=== PATIENT | female | born 1955 | race Caucasian/White ===

== ENCOUNTER 2021-07-03 16:49 | Emergency (ER) | payer BC, SELFPAY ==
--- NOTE | 2021-07-03 16:58 | ED.SKABFB ---
HPI - Skin/Abscess/Foreign Bdy General Chief complaint: Skin/Abscess/Foreign Body Stated complaint: Rash on right Arm Time Seen by Provider: 07/03/21 16:58 Source: patient Mode of arrival: ambulatory Limitations: no limitations History of Present Illness HPI narrative: 66-year-old female states she has had rash to right arm for approximately 3 days. Reports 4 days ago she began having muscular pain to right upper arm. Went to see her chiropractor for adjustment. States that pain continued. The next day she noticed a painful rash to her right forearm. Continued to have muscle ache to right upper arm so she got a massage. This still did not help her muscle pain. The next day the rash was getting worse with a pins and needle tingling sensation to her right arm. States that her has been out mushroom hunting and thought maybe she had poison ericka but has not had any itching with her previous poison ericka rashes. Today she was talking with her friend and her friend suggested that she be seen for possible shingles. All systems reviewed and negative except as noted above. Related Data Home Medications Medication Instructions Recorded Confirmed ibuprofen 200 mg tablet 200 mg PO Q6H 07/09/20 07/03/21 tamoxifen 10 mg tablet 10 mg PO DAILY tablet 10/16/20 07/03/21 Allergies Allergy/AdvReac Type Severity Reaction Status Date / Time No Known Allergies Allergy Verified 07/03/21 16:58 Review of Systems Review of Systems: CONSTITUTIONAL: Denies fever, chills, or sweats. EYES: Denies visual changes, redness, or discharge. ENT: Denies rhinorrhea, congestion, sore throat, or otalgia. CARDIOVASCULAR: Denies chest pain, palpitations, or edema. RESPIRATORY: Denies cough or dyspnea. GASTROINTESTINAL: Denies abdominal pain, nausea, vomiting, or diarrhea. GENITOURINARY: Denies dysuria or hematuria. SKIN: Reports painful rash to right forearm. MUSCULOSKELETAL: Denies back pain, joint pain, or myalgia. NEUROLOGIC: Denies headache, numbness, or weakness. PSYCHIATRIC: Denies anxiety or depression. All other systems reviewed are negative, except as documented in HPI. [facility] Past Medical History Medical History Chronic night sweats Essential hypertension PAULINE (generalized anxiety disorder) Surgical History Surgical History History of hysterectomy History of lumpectomy of left breast History of total right knee replacement (TKR) Hx of foot surgery Family History Family History Father Family history of cardiovascular disease Family history of coronary artery disease Mother Family history of lung disease Social History Social History Second hand tobacco smoke exposure: No Alcohol intake: current Drinks per week: 9 Substance use: never Substance use type: does not use Gender identity (if verbalized by the patient): Female Comments At time of signature, agree with nursing past medical, surgical, social and family history. There is no relevant family history pertinent to the presenting complaint. Exam Narrative: GENERAL: This is a well-nourished, well-developed patient, in no apparent distress. HEAD: normocephalic, atraumatic. EYES: PERRL. Sclera clear/white. Vision is grossly intact. EARS: External ears normal NOSE: External nose normal NECK: Neck supple, non-tender without lymphadenopathy, masses or thyromegaly. CARDIOVASCULAR: Regular rate and rhythm without murmurs, gallops, or rubs. RESPIRATORY: Clear to auscultation. Breath sounds equal bilaterally. No wheezes, rales, or rhonchi. SKIN: warm, Dry, intact , good texture and turgor. Erythematous vesicular rash to entire right arm. Vesicles to right thumb and right thenar eminence. Vesicular rash to right forearm is drying up an
[2021-07-03 17:01] VITALS: BP 154/97; PULSE 99; RESP 18; TEMP 36.3; O2SAT 100
== END 2021-07-03 17:25 | disposition home or self-care (01) ==
PROVIDERS: Emergency Provider Nurse Practitioner Family; PCP Family Medicine
DX: B02.9 Zoster without complications (principal); I10 Essential (primary) hypertension; Z96.651 Presence of right artificial knee joint
CPT/HCPCS: 99213; G0463

== ENCOUNTER 2022-03-02 13:51 | Outpatient (CLI) | payer BC, SELFPAY ==
--- NOTE | ~2022-03-02 | DEXA_ITS ---
Bone Density Report Name: BUBBA MOORE Age: 66 Sex: Female Ethnicity: White Date of : 1955 Indication: postmenopausal; screening for osteoporosis; height loss; cancer; Referring Provider: SHELLI GRAF Study: Bone densitometry was performed. Exam Date: March 02, 2022 Accession number: [id number] Bone Density: Region BMD T-score Z-score Classification AP Spine(L1-L4) 1.149 0.9 2.7 Normal Femoral Neck (Left) 0.742 -1.0 0.5 Normal Total Hip (Left) 0.895 -0.4 0.8 Normal Femoral Neck (Right) 0.757 -0.8 0.7 Normal Total Hip (Right) 0.909 -0.3 0.9 Normal Total Hip Mean 0.902 -0.4 0.9 Normal World Health Organization criteria for BMD impression classify patients as: Normal (T-score at or above -1.0), Osteopenia (T-score between -1.0 and -2.5), or Osteoporosis (T-score at or below -2.5). 10-year Fracture Risk: FRAX not reported because: All T-scores for Spine Total, Hip Total, Femoral Neck at or above -1.0 Previous Exams: Region Exam Age BMD T-score BMD Change BMD Change Date g/cm2 vs Baseline vs Previous AP Spine (L1-L4) 03/02/2022 66 1.149 0.9 0.048 (4.4%)* 0.048 (4.4%)* 03/07/2017 61 1.101 0.5 Total Hip(Left) 03/02/2022 66 0.895 -0.4 -0.047 (-5.0%) -0.047 (-5.0%) 03/07/2017 61 0.942 0.0 Total Hip(Right) 03/02/2022 66 0.909 -0.3 0.018 (2.0%) 0.018 (2.0%) 03/07/2017 61 0.891 -0.4 *Denotes significance at 95% confidence level, LSC for AP Spine = 0.022 g/cm2, LSC for Total Hip = 0.027 g/cm2 Clinical Information Provided by Patient: Has used the following medications: Vitamin D, Calcium Has the following medical conditions: Cancer Patient maximum height was 65 Menopause Age: 57 Drinks caffeinated beverages Onset of menses at age 15 Number of children 1 Impression: The patient has normal bone mass. The BMD for the Total Hip(Left) decreased, changing by -5.0% since the last DXA exam. Discussion: BONE DENSITY IS ABOVE THE MINIMUM DESIRABLE LEVEL AT ALL SKELETAL SITES TESTED. This patient?s bone mineral density is above the minimum desirable level (T-score -1.0 or better) at all sites measured. The patient should follow a healthful lifestyle (good nutrition with adequate calcium and vitamin D, and appropriate weight-bearing exercise). Follow-Up: Consider repeating this study in 3 to 4 years to reassess this patient's status, or sooner if there is some new clinical indication.
== END 2022-03-02 13:52 | disposition home or self-care (01) ==
LOC: ANHIMG 13:52
PROVIDERS: PCP Family Medicine; Visit Provider Physician Assistant Medical
DX: Z78.0 Asymptomatic menopausal state (principal)
CPT/HCPCS: 77080

== ENCOUNTER 2022-03-29 00:26 | Day surgery (SDC) | payer BC, SELFPAY ==
[2022-03-15 09:14] VITALS: BMI 24.8
[2022-03-29 07:13] VITALS: BP 103/69; PULSE 107; RESP 16; TEMP 36.3; O2SAT 100
[2022-03-29] MEDS: LACTATED RINGERS 1,000 ML 150 ML IV CONT (07:14)
--- NOTE | 2022-03-29 07:53 | PM.HPGS ---
History of Present Illness History of Present Illness Consent: Risks, benefits, and alternatives have been discussed and questions answered. Patient agrees to proceed with procedure. Chief complaint: neoplasm screening Narrative: Nya Mackenzie is a 66 year old female Presents for screening colonoscopy. Patient's current weight appetite and bowel movements are normal. Patient denies abdominal pain. She has had no bleeding. Family history is noncontributory. Previous colonoscopy 2011 was reported to be unremarkable. Review of Systems Review of Systems: Review of systems noncontributory. [facility] Past Medical History Medical History Chronic night sweats Essential hypertension PAULINE (generalized anxiety disorder) Mixed hyperlipidemia Surgical History Surgical History History of hysterectomy History of lumpectomy of left breast History of total right knee replacement (TKR) Hx of foot surgery Family History Family History Father Family history of cardiovascular disease Family history of coronary artery disease Mother Family history of lung disease Social History Social History Smoking status: Never smoker Second hand tobacco smoke exposure: No Alcohol intake: current Drinks per week: 9 Substance use: never Substance use type: does not use Lack of Transportation: No Lack of Food: Never True Current Housing: I Have Housing Concerned About Future Housing: No Difficulty Paying Gas/Electric Bills: No Difficulty Paying for Meds: No Currently Unemployed: No Education: Bachelor's Degree Difficulty w/ Childcare or Family Care: No Gender identity (if verbalized by the patient): Female Spiritual care concerns: No Agree to blood products: Yes Meds Home Medications and Allergies Home Medications Medication Instructions Recorded Confirmed Type ibuprofen 200 mg tablet (Advil) 200 mg PO Q6H 07/09/20 03/29/22 History tamoxifen 10 mg tablet 10 mg PO DAILY 10/16/20 03/29/22 History sertraline 100 mg tablet 100 mg PO DAILY #90 tabs 04/07/21 03/29/22 Rx bupropion HCl 150 mg 24 hr tablet, 150 mg PO QAM #90 tabs 12/02/21 03/29/22 Rx extended release atorvastatin 40 mg tablet 40 mg PO DAILY #90 tabs 01/27/22 03/29/22 Rx lisinopril 20 mg tablet 20 mg PO DAILY #90 tabs 03/24/22 03/29/22 Rx Allergies Allergy/AdvReac Type Severity Reaction Status Date / Time No Known Allergies Allergy Verified 03/29/22 07:09 Vital Signs Vital Signs - 24 hr 03/29/22 07:13 Temperature 97.3 F L Pulse Rate 107 H Respiratory Rate 16 Blood Pressure 103/69 Pulse Oximetry 100 Oxygen Delivery Room Air Exam Narrative: Physical exam reveals patient to be alert. Vital signs stable. HEENT exam is unremarkable. Patient is anicteric. Lungs are clear to auscultation and percussion. Heart is without murmur or extra sounds. Abdomen bowel sounds are present soft nontender with no organomegaly. Digital external rectal exam is normal. Assessment and Plan Assessment and plan (1) Encounter for screening colonoscopy: Code(s): Z12.11 - Encounter for screening for malignant neoplasm of colon Status: Acute Assessment and Plan: Patient presents today for screening colonoscopy. She appears to be at average risk for colon polyps. Further recommendations may be given after endoscopy.
--- NOTE | 2022-03-29 08:00 | WPDANESEPPF ---
Anes - Initial Pre Proc Eval Procedure: Operation Date: 03/29/22 08:30 Proposed Procedures p Screening Colonoscopy - Dario Bills MD Date/Time: 03/29/22 08:00 Surgeon: Dario Bills MD Pre Op Diagnosis: neoplasm screening Patient Data Age: 66 Gender: F Height: 1.6 m Weight: 62 kg Last Vital Signs Temp 97.3 F L 03/29/22 07:13 Pulse 107 H 03/29/22 07:13 Resp 16 03/29/22 07:13 BP 103/69 03/29/22 07:13 Pulse Ox 100 03/29/22 07:13 O2 Del Method Room Air 03/29/22 07:13 Allergies Allergy/AdvReac Type Severity Reaction Status Date / Time No Known Allergies Allergy Verified 03/29/22 07:09 Home Medications Medication Instructions Recorded Confirmed Type ibuprofen 200 mg tablet (Advil) 200 mg PO Q6H 07/09/20 03/29/22 History tamoxifen 10 mg tablet 10 mg PO DAILY 10/16/20 03/29/22 History sertraline 100 mg tablet 100 mg PO DAILY #90 tabs 04/07/21 03/29/22 Rx bupropion HCl 150 mg 24 hr tablet, 150 mg PO QAM #90 tabs 12/02/21 03/29/22 Rx extended release atorvastatin 40 mg tablet 40 mg PO DAILY #90 tabs 01/27/22 03/29/22 Rx lisinopril 20 mg tablet 20 mg PO DAILY #90 tabs 03/24/22 03/29/22 Rx Patient hx anesthesia problems: none Family hx anesthesia problems: none Results Review: All pre-operative results and documents have been reviewed as part of the pre-operative evaluation. [facility] Past Medical History Medical History Chronic night sweats Essential hypertension PAULINE (generalized anxiety disorder) Mixed hyperlipidemia Surgical History Surgical History History of hysterectomy History of lumpectomy of left breast History of total right knee replacement (TKR) Hx of foot surgery Family History Family History Father Family history of cardiovascular disease Family history of coronary artery disease Mother Family history of lung disease Social History Social History Smoking status: Never smoker Second hand tobacco smoke exposure: No Alcohol intake: current Drinks per week: 9 Substance use: never Substance use type: does not use Lack of Transportation: No Lack of Food: Never True Current Housing: I Have Housing Concerned About Future Housing: No Difficulty Paying Gas/Electric Bills: No Difficulty Paying for Meds: No Currently Unemployed: No Education: Bachelor's Degree Difficulty w/ Childcare or Family Care: No Gender identity (if verbalized by the patient): Female Spiritual care concerns: No Agree to blood products: Yes Anes - Eval Final PreProcedure Day of Procedure 03/29/22 08:00 Patient weight: normal Heart: regular rate and rhythm Lungs: clear to auscultation Airway: Mallampati scale class II Neurological: alert and oriented Last oral intake: >/= 8 hours ASA classification: III Emergent: no Anesthetic plan: proceed Anesthesia type and monitoring: general GIVS and standard monitoring Results Review: All pre-operative results and documents have been reviewed as part of the pre-operative evaluation. Informed Consent: The patient's anesthetic plan and its attendant risks and benefits were discussed with the patient/family/POA. Questions were solicited and answers provided to the satisfaction of the patient/family/POA.
[2022-03-29 08:58] VITALS: BP 81/53; PULSE 81; RESP 22; O2SAT 100
[2022-03-29 09:08] VITALS: BP 84/52; PULSE 79; RESP 21; O2SAT 100
[2022-03-29 09:18] VITALS: BP 92/59; PULSE 69; RESP 16; O2SAT 100
== END 2022-03-29 09:31 | disposition home or self-care (01) ==
PROVIDERS: PCP Family Medicine; Visit Provider Internal Medicine Gastroenterology
PROC: 0DJD8ZZ Inspection of Lower Intestinal Tract, Via Natural or Artificial Opening Endoscopic (ICD-10-PCS; CPT 45378; principal; 2022-03-29 08:30)
DX: Z12.11 Encounter for screening for malignant neoplasm of colon (principal); D12.5 Benign neoplasm of sigmoid colon; K64.8 Other hemorrhoids; I10 Essential (primary) hypertension; E78.2 Mixed hyperlipidemia; F41.1 Generalized anxiety disorder; Z79.810 Long term (current) use of selective estrogen receptor modulators (SERMs)
CPT/HCPCS: 45385; 88305; J2704; J7120

== ENCOUNTER 2023-11-10 13:01 | Outpatient (CLI) | payer MEDICARE, SELFPAY ==
--- NOTE | ~2023-11-10 | XR_ITS ---
[id number] Ordering provider: Vashti Allen PA-C History: . M54.2 - Cervicalgia . Comparison: None. FINDINGS: VERTEBRAL BODIES: Normal height and alignment. No visible fracture or subluxation. The dens is intact . DISK SPACES: Narrowing of the disc C3-C4, C5-C6 and C6-C7. Multilevel facet joint disease. Multilevel uncovertebral joint osteoarthritic changes. PARASPINOUS SOFT TISSUES: No prevertebral soft tissue swelling. IMPRESSION: No acute osseous abnormality cervical spine. Multilevel degenerative disc disease. Reviewed, dictated and finalized at location A.
--- NOTE | ~2023-11-10 | XR_ITS ---
3 VIEWS LUMBAR SPINE Ordering provider: Vashti Allen PA-C History: . M54.9 - Dorsalgia, unspecified . Comparison: None. FINDINGS: VERTEBRAL BODIES: No visible fracture or subluxation. Degenerative changes of the spine. DISK SPACES: Narrowing of the disc L1-L2, L2-L3, L3-L4 and L5-S1. Multilevel facet joint disease. SOFT TISSUES: Normal. IMPRESSION: No acute osseous abnormality lumbar spine. Multilevel degenerative disc disease. Reviewed, dictated and finalized at location A.
--- NOTE | ~2023-11-10 | XR_ITS ---
3 VIEWS THORACIC SPINE Ordering provider: Vashti Allen PA-C History: . M54.50 - Low back pain, unspecified . Comparison: None. FINDINGS: VERTEBRAL BODIES: Anterolisthesis at the level of T1-T2. CT evaluation advised. Normal height and ali gnment. No visible fracture or subluxation. Degenerative changes of the spine. DISK SPACES: Multilevel degenerative disc disease in the mid and lower thoracic area. Degenerative disc disease in the cervical area. SOFT TISSUES: Normal. IMPRESSION: No acute osseous abnormality of the thoracic spine. Reviewed, dictated and finalized at location A.
== END 2023-11-10 13:02 ==
PROVIDERS: PCP Student in an Organized Health Care Education/Training Program; Visit Provider Student in an Organized Health Care Education/Training Program
DX: M51.36 Other intervertebral disc degeneration, lumbar region (principal); M50.30 Other cervical disc degeneration, unspecified cervical region
CPT/HCPCS: 72040; 72070; 72100